=== PATIENT | male | born 1955 | race Two or more races ===

== ENCOUNTER 2022-08-25 07:45 | Inpatient (IN) | payer OTHER ==
[~2022-08-25] VITALS: Ht 180.3 cm; Wt 89.8 kg
[2022-08-25] MEDS ORDERED: GLUMETZA1000 MG PO (09:17)
[2022-08-25] MEDS ORDERED: COZAAR100 MG PO (09:17)
[2022-08-25] MEDS ORDERED: METFORMIN HCL1000 M2 PO (09:19)
[2022-08-25] MEDS ORDERED: GABAPENTIN100 M2 PO (09:19)
[2022-09-02] MEDS ORDERED: DUI500 PO (16:39)
[2022-09-02] MEDS ORDERED: PERCOCET 5-3251 EACH PO (16:39)
[2022-09-02] MEDS ORDERED: ELIQUIS2.5 MG PO (16:39)
== END 2022-09-02 22:49 | disposition home or self-care (01) | DRG 470 ==
LOC: O/R 08-31 06:20 → SURG 08-31 06:20 → O/R 08-31 13:17 → SURG 08-31 15:36
PROVIDERS: ADMIT Orthopaedic Surgery; ATTEND Orthopaedic Surgery
PROC: 0SRB0JZ Replacement of Left Hip Joint with Synthetic Substitute, Open Approach (ICD-10-PCS; principal; 2022-08-31 07:00)
DX: M16.12 Unilateral primary osteoarthritis, left hip (principal); D62 Acute posthemorrhagic anemia; I10 Essential (primary) hypertension; E11.9 Type 2 diabetes mellitus without complications; Z96.642 Presence of left artificial hip joint; Z20.822 Contact with and (suspected) exposure to COVID-19